=== PATIENT | female | born 1985 | race Two or more races ===

== ENCOUNTER 2017-03-13 20:00 | Emergency (ER) | payer MEDICAID, OTHER ==
[~2017-03-13] VITALS: Ht 167.6 cm; Wt 128.4 kg
--- NOTE | 2017-03-13 20:30 | NUR ---
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 PT IS ON THE MONITOR AND CONTINUOUS PULSE OX. PT IS AA&O X4. PT STATED THAT SHE HAS HAD N/V AND DIARRHEA X 8 DAYS.
[2017-03-13] MEDS ORDERED: ACETAMINOPHEN 325 MG TABLET PO STA (20:32)
[2017-03-13] MEDS ORDERED: KETOROLAC TROMETHAMINE INJ 30 MG/ML VIAL ONE (20:41)
[2017-03-13] MEDS ORDERED: ONDANSETRON HCL/PF 4 MG/2 ML VIAL ONE (20:41)
--- NOTE | 2017-03-13 20:49 | NUR ---
MEDICATED PT ORDERED
[2017-03-13 20:56] LABS: BASOPHILS # (AUTO) 0.3 /CMM (0.0-0.2); BASOPHILS % (AUTO) 1.5 % (0.0-2.0); EOSINOPHILS # (AUTO) 0.5 /CMM (0.0-0.7); EOSINOPHILS % (AUTO) 2.9 % (0.0-6.0); HEMATOCRIT 43 % (33-45); HEMOGLOBIN 14.5 g/dL (11.5-14.8); LYMPHOCYTES # (AUTO) 3.2 /CMM (0.8-4.8); LYMPHOCYTES % (AUTO) 19.1 % (20.0-44.0); MEAN CORPUSCULAR HEMOGLOBIN 28 PG (26.0-33.0); MEAN CORPUSCULAR HGB CONC 33 g/dl (31.0-36.0); MEAN CORPUSCULAR VOLUME 85 fL (82-100); MONOCYTES % (AUTO) 5.9 % (2.0-12.0); NEUTROPHILS # (AUTO) 11.7 /CMM (1.8-8.9); NEUTROPHILS % (AUTO) 70.6 % (43.0-81.0); PLATELET COUNT (AUTO) 441 /CMM (150-450); RDW COEFFICIENT OF VARIATION 13.3 (11.5-15.0); RED BLOOD CELL COUNT(AUTO) 5.11 MIL/uL (4.0-5.2); WHITE BLOOD COUNT (AUTO) 16.7 K/uL (4.3-11.0)
[2017-03-13] MEDS ORDERED: IV NS 0.9% 1,000 ML BAG IV ONE ×2 (21:00→21:30)
[2017-03-13] MEDS ORDERED: ONDANSETRON HCL/PF - ER 4 MG/2 ML VIAL IV ONE (21:00)
[2017-03-13] MEDS ORDERED: ONDANSETRON 4 MG TAB.RAPDIS SL ONE (21:00)
[2017-03-13] MEDS ORDERED: KETOROLAC TROMETHAMINE INJ 30 MG/ML VIAL IV ONE (21:00)
[2017-03-13 21:20] LABS: CALCIUM, SERUM 8.6 mg/dL (8.5-10.1); CREATININE 0.8 mg/dL (0.6-1.3); POTASSIUM 3.7 mmol/L (3.5-5.1)
[2017-03-13 21:27] LABS: ALBUMIN 3.1 g/dL (3.4-5.0); BILIRUBIN,TOTAL 0.1 mg/dL (0.2-1.0); TOTAL PROTEIN, SERUM 7.7 g/dL (6.4-8.2)
[2017-03-13] MEDS ORDERED: ALBUTEROL FS 2.5 MG/3 ML VIAL.NEB NEB ONE (21:30)
[2017-03-13] MEDS ORDERED: ALBUTEROL FS 2.5 MG/3 ML VIAL.NEB ONE (21:36)
--- NOTE | 2017-03-13 21:40 | NUR ---
PT IS REC'ING BREATHING TX.
[2017-03-13] MEDS ORDERED: AZITHROMYCIN 250 MG TABLET PO STA (21:57)
[2017-03-13] MEDS ORDERED: AZITHROMYCIN 250 MG TABLET ONE (22:05)
[2017-03-13] MEDS ORDERED: PROMETHAZINE HCL 25 MG/ML AMPUL IV STA (22:33)
[2017-03-13] MEDS ORDERED: PROMETHAZINE HCL 25 MG/ML AMPUL ONE (22:45)
--- NOTE | 2017-03-13 23:12 | NUR ---
IV removed. Catheter intact and site benign. Pressure and 4x4 applied to site. No bleeding noted.Patient discharged to home in stable condition. Written and verbal after care instructions given. Patient verbalizes understanding of instruction AND RX. PT AMBULATED OUT WITH A STEADY GAIT. PT IS TAKING AN UBER HOME. VSS
[2017-03-13 23:14] VITALS: BP 129/72
== END 2017-03-13 23:16 | disposition home or self-care (01) ==
LOC: ER 20:04
DX: J06.9 Acute upper respiratory infection, unspecified (principal); J45.909 Unspecified asthma, uncomplicated; F31.9 Bipolar disorder, unspecified; F41.0 Panic disorder [episodic paroxysmal anxiety]; I10 Essential (primary) hypertension; E11.9 Type 2 diabetes mellitus without complications; F17.200 Nicotine dependence, unspecified, uncomplicated; Z88.6 Allergy status to analgesic agent; Z90.49 Acquired absence of other specified parts of digestive tract
CPT/HCPCS: 36415; 71010-TC; 80053-TC; 82962-TC; 83690-TC; 85025-TC; A4606; J1885; J2405; J2550; J7030; Z7610

== ENCOUNTER 2017-03-18 08:29 | Emergency (ER) | payer OTHER ==
[~2017-03-18] VITALS: Ht 167.6 cm; Wt 128.4 kg
[2017-03-18] MEDS ORDERED: HYDROCODONE/APAP 10/325MG 1 EA TABLET ONE (09:00)
[2017-03-18] MEDS ORDERED: HYDROCODONE/APAP 10/325MG 1 EA TABLET PO ONE (09:00)
--- NOTE | 2017-03-18 09:01 | NUR ---
PT REC'D TO ER C/O NECK AND BACK PAIN 01/08 FELL 03/17/17 AT STORE facility. ER MD notified.AWAITING EVALUATION BY ER PROVIDER.
--- NOTE | 2017-03-18 09:03 | NUR ---
PT GIVEN NORCO 10 MG PO NOW PER MD ORDER VSS
--- NOTE | 2017-03-18 09:30 | NUR ---
PT SENT TO CT
--- NOTE | 2017-03-18 10:06 | NUR ---
PT BACK FROM CT PAIN WAITING EVALUATION BY ER PROVIDER.
[2017-03-18] MEDS ORDERED: KETOROLAC TROMETHAMINE INJ 30 MG/ML VIAL ONE (12:10)
--- NOTE | 2017-03-18 12:22 | NUR ---
Patient discharged to home in stable condition. Written and verbal after care instructions given. Patient verbalizes understanding of instruction.
[2017-03-18 12:23] VITALS: BP 122/81
[2017-03-18] MEDS ORDERED: KETOROLAC TROMETHAMINE INJ 60 MG/2 ML VIAL IM ONE (12:30)
== END 2017-03-18 12:24 | disposition home or self-care (01) ==
LOC: ER 08:36
DX: S16.1XXA Strain of muscle, fascia and tendon at neck level, initial encounter (principal); S80.01XA Contusion of right knee, initial encounter; E66.01 Morbid (severe) obesity due to excess calories; I10 Essential (primary) hypertension; J45.909 Unspecified asthma, uncomplicated; E11.9 Type 2 diabetes mellitus without complications; Z88.6 Allergy status to analgesic agent; F17.200 Nicotine dependence, unspecified, uncomplicated; F31.9 Bipolar disorder, unspecified; Z90.49 Acquired absence of other specified parts of digestive tract; W18.39XA Other fall on same level, initial encounter; Y93.01 Activity, walking, marching and hiking; Y92.89 Other specified places as the place of occurrence of the external cause; Y99.8 Other external cause status
CPT/HCPCS: 72125; 73564; 99284; A4606; J1885; Z7610

== ENCOUNTER 2017-04-15 07:44 | Emergency (ER) | payer MEDICAID, OTHER ==
[~2017-04-15] VITALS: Ht 170.2 cm; Wt 133.8 kg
[2017-04-15] MEDS ORDERED: OSELTAMIVIR PHOSPHATE 75 MG CAPSULE PO ONE (08:00)
[2017-04-15] MEDS ORDERED: ALBUTEROL FS 2.5 MG/3 ML VIAL.NEB NEB ONE (08:00)
[2017-04-15] MEDS ORDERED: IPRATROPIUM NEB FS 0.5 MG/2.5 ML AMPUL.NEB NEB ONE (08:00)
[2017-04-15] MEDS ORDERED: IBUPROFEN 400 MG TABLET PO ONE (08:00)
[2017-04-15] MEDS ORDERED: predniSONE 20 MG TABLET PO ONE (08:00)
[2017-04-15] MEDS ORDERED: IBUPROFEN 400 MG TABLET ONE (08:03)
[2017-04-15] MEDS ORDERED: predniSONE 20 MG TABLET ONE (08:04)
[2017-04-15] MEDS ORDERED: OSELTAMIVIR PHOSPHATE 75 MG CAPSULE ONE (08:04)
[2017-04-15] MEDS ORDERED: ALBUTEROL FS 2.5 MG/3 ML VIAL.NEB ONE (08:09)
[2017-04-15] MEDS ORDERED: IPRATROPIUM NEB FS 0.5 MG/2.5 ML AMPUL.NEB ONE (08:09)
[2017-04-15 08:50] VITALS: BP 124/80
== END 2017-04-15 08:56 | disposition home or self-care (01) ==
LOC: ER 07:45
DX: J06.9 Acute upper respiratory infection, unspecified (principal); J11.1 Influenza due to unidentified influenza virus with other respiratory manifestations; J45.901 Unspecified asthma with (acute) exacerbation; I10 Essential (primary) hypertension; E11.9 Type 2 diabetes mellitus without complications; F31.9 Bipolar disorder, unspecified; E66.01 Morbid (severe) obesity due to excess calories; E78.5 Hyperlipidemia, unspecified; F17.200 Nicotine dependence, unspecified, uncomplicated; Z90.49 Acquired absence of other specified parts of digestive tract; Z88.6 Allergy status to analgesic agent
CPT/HCPCS: 94640; 99284; A4606; J7512; Z7610

== ENCOUNTER 2017-04-18 16:51 | Emergency (ER) | payer MEDICAID ==
[~2017-04-18] VITALS: Ht 167.6 cm; Wt 132.9 kg
--- NOTE | 2017-04-18 17:36 | NUR ---
CALLED [facility] FOR PHENERGAN
[2017-04-18 17:38] LABS: BASOPHILS # (AUTO) 0.1 /CMM (0.0-0.2); BASOPHILS % (AUTO) 0.5 % (0.0-2.0); EOSINOPHILS # (AUTO) 0.1 /CMM (0.0-0.7); EOSINOPHILS % (AUTO) 0.9 % (0.0-6.0); HEMATOCRIT 43 % (33-45); HEMOGLOBIN 14.1 g/dL (11.5-14.8); LYMPHOCYTES % (AUTO) 19.5 % (20.0-44.0); MEAN CORPUSCULAR HEMOGLOBIN 28 PG (26.0-33.0); MEAN CORPUSCULAR HGB CONC 33 g/dl (31.0-36.0); MEAN CORPUSCULAR VOLUME 85 fL (82-100); MONOCYTES # (AUTO) 0.8 /CMM (0.1-1.30); MONOCYTES % (AUTO) 5.5 % (2.0-12.0); NEUTROPHILS # (AUTO) 11.2 /CMM (1.8-8.9); NEUTROPHILS % (AUTO) 73.6 % (43.0-81.0); PLATELET COUNT (AUTO) 396 /CMM (150-450); RDW COEFFICIENT OF VARIATION 15.4 (11.5-15.0); RED BLOOD CELL COUNT(AUTO) 5.08 MIL/uL (4.0-5.2); WHITE BLOOD COUNT (AUTO) 15.2 K/uL (4.3-11.0)
[2017-04-18 17:49] LABS: CALCIUM, SERUM 8.7 mg/dL (8.5-10.1); CREATININE 0.8 mg/dL (0.6-1.3); POTASSIUM 3.5 mmol/L (3.5-5.1)
[2017-04-18] MEDS: CODEINE/PROMETHAZINE HCL 5 ML UDC PO PRN (17:49)
--- NOTE | 2017-04-18 17:55 | NUR ---
RT PT REFUSED TX INFORMED DR GUERRERO. SP02 95% HR 111 RESP 20. BREATH SOUNDS CLEAR NO RESP DISTRESS NOTED ATT. PT STATES SHE GETS ANXIETY AND JITTERY AFTER TAKING THE TX AND THAT SHE ALREADY TOOK 2 TX PRIOR TO COMING TO THE EMERGENCY ROOM. SHE WILL CALL WHEN SHE NEEDS THE TX
--- NOTE | 2017-04-18 18:00 | NUR ---
BBRA FOR COUGH AND SHORTNESS OF BREATH, GIVEN BREATHING TREATMENT BY EMS WITH RELIEF. PATIENT'S VS STABLE AT THIS TIME
--- NOTE | 2017-04-18 18:13 | NUR ---
PER RT PATIENT REFUSED BREATHING TX
[2017-04-18] MEDS: ALBUTEROL FS 2.5 MG/3 ML VIAL.NEB NEB ONE (18:17)
[2017-04-18] MEDS: IPRATROPIUM NEB FS 0.5 MG/2.5 ML AMPUL.NEB NEB ONE (18:17)
[2017-04-18 19:30] VITALS: BP 132/91
--- NOTE | 2017-04-18 19:31 | NUR ---
Patient discharged to home in stable condition. Written and verbal after care instructions given. Patient verbalizes understanding of instruction.IV removed. Catheter intact and site benign. Pressure and 4x4 applied to site. No bleeding noted. PT ambulatory with a steady gait
== END 2017-04-18 19:31 | disposition home or self-care (01) ==
LOC: ER 16:54
DX: J45.901 Unspecified asthma with (acute) exacerbation (principal); I10 Essential (primary) hypertension; E11.9 Type 2 diabetes mellitus without complications; F31.9 Bipolar disorder, unspecified; F41.0 Panic disorder [episodic paroxysmal anxiety]; F17.210 Nicotine dependence, cigarettes, uncomplicated; Z90.49 Acquired absence of other specified parts of digestive tract; Z88.6 Allergy status to analgesic agent
CPT/HCPCS: 36415; 71010; 80048; 85025; 87804 ×2; 99285; A4606; Z7610; 87400

== ENCOUNTER 2017-06-29 06:45 | Emergency (ER) | payer MEDICAID, OTHER ==
[~2017-06-29] VITALS: Ht 167.6 cm; Wt 99.8 kg
[2017-06-29 06:53] VITALS: BP 125/78
[2017-06-29] MEDS ORDERED: ACETAMINOPHEN 325 MG TABLET ONE (07:02)
[2017-06-29] MEDS ORDERED: ACETAMINOPHEN 325 MG TABLET PO ONE (07:30)
== END 2017-06-29 07:06 | disposition home or self-care (01) ==
LOC: ER 06:50
DX: S93.402A Sprain of unspecified ligament of left ankle, initial encounter (principal); E11.9 Type 2 diabetes mellitus without complications; I10 Essential (primary) hypertension; J45.909 Unspecified asthma, uncomplicated; F17.200 Nicotine dependence, unspecified, uncomplicated; F41.0 Panic disorder [episodic paroxysmal anxiety]; F31.9 Bipolar disorder, unspecified; Z90.49 Acquired absence of other specified parts of digestive tract; Z88.6 Allergy status to analgesic agent; Z60.2 Problems related to living alone; X58.XXXA Exposure to other specified factors, initial encounter; Y93.89 Activity, other specified; Y92.89 Other specified places as the place of occurrence of the external cause; Y99.8 Other external cause status

== ENCOUNTER 2017-08-01 14:10 | Emergency (ER) | payer OTHER ==
[~2017-08-01] VITALS: Ht 170.2 cm; Wt 136.1 kg
--- NOTE | 2017-08-01 14:32 | NUR ---
PATIENT TO ED DT DIZZY, WEAK, DIARRHEA, THIRSTY AND URINARY URGENCY X YESTERDAY. PATIENT IS AWAKE AND ALERT, IN NO DISTRESS. SKIN IS WARM TO TOUCH AND NON DIAPHORETIC. PATIENT IS AFEBRILE. VSS. PT WITH HX OF DM
[2017-08-01 15:22] LABS: APPEARANCE,URINE Slightly Cloudy (CLEAR); BILIRUBIN,URINE Negative (NEGATIVE); BLOOD, URINE Negative Ery/uL (NEGATIVE); COLOR,URINE Yellow (YELLOW); KETONES,URINE Trace (NEGATIVE); LEUKOCYTE ESTERASE ,URINE Small (NEGATIVE); NITRITE, URINE Negative (NEGATIVE); PH,URINE 5.5 (5.0-8.0); PROTEIN,URINE Negative (NEGATIVE); UGLUCOSE Negative (NEGATIVE); UROBILINOGEN,URINE 0.2 EU/dL (0.2)
[2017-08-01 15:43] LABS: BASOPHILS # (AUTO) 0.3 /CMM (0.0-0.2); BASOPHILS % (AUTO) 2.1 % (0.0-2.0); EOSINOPHILS % (AUTO) 3.2 % (0.0-6.0); HEMATOCRIT 41 % (33-45); HEMOGLOBIN 14.1 g/dL (11.5-14.8); LYMPHOCYTES # (AUTO) 2.3 /CMM (0.8-4.8); LYMPHOCYTES % (AUTO) 17.9 % (20.0-44.0); MEAN CORPUSCULAR HGB CONC 35 g/dl (31.0-36.0); MEAN CORPUSCULAR VOLUME 86 fL (82-100); MONOCYTES # (AUTO) 0.7 /CMM (0.1-1.30); MONOCYTES % (AUTO) 5.7 % (2.0-12.0); NEUTROPHILS # (AUTO) 9.4 /CMM (1.8-8.9); NEUTROPHILS % (AUTO) 71.1 % (43.0-81.0); PLATELET COUNT (AUTO) 346 /CMM (150-450); RDW COEFFICIENT OF VARIATION 12.7 (11.5-15.0); RED BLOOD CELL COUNT(AUTO) 4.76 MIL/uL (4.0-5.2); WHITE BLOOD COUNT (AUTO) 13.1 K/uL (4.3-11.0)
[2017-08-01 16:02] LABS: CALCIUM, SERUM 8.5 mg/dL (8.5-10.1); CREATININE 0.7 mg/dL (0.6-1.3); POTASSIUM 4.3 mmol/L (3.5-5.1)
[2017-08-01 16:03] LABS: BACTERIA,URINE 1+ /HPF (None Seen); RBC,URINE 0-2 /HPF (0-2); SQUAMOUS EPITHELIAL CELL,UR Many /HPF (None Seen)
[2017-08-01 16:07] LABS: ALBUMIN 2.8 g/dL (3.4-5.0); BILIRUBIN,DIRECT 0.1 mg/dL (0.0-0.2); BILIRUBIN,TOTAL 0.1 mg/dL (0.2-1.0); TOTAL PROTEIN, SERUM 6.9 g/dL (6.4-8.2)
[2017-08-01 16:30] VITALS: BP 140/80
--- NOTE | 2017-08-01 16:53 | NUR ---
PATIENT LEFT THE FACILITY WITHOIUTT DISCHARGE PAPER. REFUSED TO SIGNED AMA--INSISTED TO LEAVE. AWARE. IV ACCESS REMOVED.
--- NOTE | 2017-08-01 17:10 | NUR ---
PATIENT STILL IN ED. AWAITING FOR MD PRESCRIPTION
--- NOTE | 2017-08-01 17:26 | NUR ---
Patient discharged to home in stable condition. Written and verbal after care instructions given. Patient verbalizes understanding of instruction.
== END 2017-08-01 17:00 | disposition home or self-care (01) ==
LOC: ER 14:12
DX: N39.0 Urinary tract infection, site not specified (principal); I10 Essential (primary) hypertension; E11.9 Type 2 diabetes mellitus without complications; F17.210 Nicotine dependence, cigarettes, uncomplicated; F31.9 Bipolar disorder, unspecified; J45.909 Unspecified asthma, uncomplicated; Z90.49 Acquired absence of other specified parts of digestive tract; Z88.5 Allergy status to narcotic agent
CPT/HCPCS: 36415; 80048-TC; 80076-TC; 81000-TC; 82962-TC; 84703-TC; 85025-TC; A4606; Z7610

== ENCOUNTER 2017-08-09 00:59 | Emergency (ER) | payer OTHER ==
[~2017-08-09] VITALS: Ht 165.1 cm; Wt 136.1 kg
[2017-08-09 00:59] VITALS: BP 128/71
[2017-08-09] MEDS ORDERED: ONDANSETRON 4 MG TAB.RAPDIS ONE (02:15)
[2017-08-09] MEDS ORDERED: ONDANSETRON 4 MG TAB.RAPDIS SL ONE (02:30)
== END 2017-08-09 03:56 | disposition home or self-care (01) ==
LOC: ER 00:59
DX: S93.491A Sprain of other ligament of right ankle, initial encounter (principal); I10 Essential (primary) hypertension; J45.909 Unspecified asthma, uncomplicated; E11.9 Type 2 diabetes mellitus without complications; F31.9 Bipolar disorder, unspecified; F17.200 Nicotine dependence, unspecified, uncomplicated; Z90.49 Acquired absence of other specified parts of digestive tract; Z88.6 Allergy status to analgesic agent; Z60.2 Problems related to living alone; W22.8XXA Striking against or struck by other objects, initial encounter; Y93.89 Activity, other specified; Y92.89 Other specified places as the place of occurrence of the external cause; Y99.8 Other external cause status
CPT/HCPCS: 73610-TC; A4606; Q0162; Z7610

== ENCOUNTER 2017-09-08 15:25 | Emergency (ER) | payer OTHER ==
[~2017-09-08] VITALS: Ht 170.2 cm; Wt 136.1 kg
--- NOTE | 2017-09-08 15:30 | NUR ---
PRESENTS TO ER STATING SHE WENT TO [email or web address] FOR VOLUNTARY ADMISSION BUT WAS TOLD TO COME HERE TO BE MEDICALLY CLEARED INSTEAD.REQUESTING FOR ATIVAN C/O ANXIETY. A/OX 4. BREATHING EVEN AND UNLABORED. NO SOB, NAD, VITALS STABLE. SAFETY AND COMFORT MEASURSES IN PLACE. AWAITING MD ORDERS.
[2017-09-08 16:20] LABS: BASOPHILS # (AUTO) 0.2 /CMM (0.0-0.2); BASOPHILS % (AUTO) 1.5 % (0.0-2.0); EOSINOPHILS % (AUTO) 1.8 % (0.0-6.0); HEMATOCRIT 41 % (33-45); HEMOGLOBIN 14.6 g/dL (11.5-14.8); LYMPHOCYTES # (AUTO) 1.9 /CMM (0.8-4.8); LYMPHOCYTES % (AUTO) 11.6 % (20.0-44.0); MEAN CORPUSCULAR HGB CONC 36 g/dl (31.0-36.0); MEAN CORPUSCULAR VOLUME 85 fL (82-100); MONOCYTES # (AUTO) 0.9 /CMM (0.1-1.30); MONOCYTES % (AUTO) 5.4 % (2.0-12.0); NEUTROPHILS % (AUTO) 79.7 % (43.0-81.0); PLATELET COUNT (AUTO) 330 /CMM (150-450); RDW COEFFICIENT OF VARIATION 13.8 (11.5-15.0); RED BLOOD CELL COUNT(AUTO) 4.77 MIL/uL (4.0-5.2); WHITE BLOOD COUNT (AUTO) 16.3 K/uL (4.3-11.0)
[2017-09-08 16:29] LABS: CALCIUM, SERUM 8.7 mg/dL (8.5-10.1); CARBON DIOXIDE 26 mmol/L (21-32); CHLORIDE 100 mmol/L (98-107); CREATININE 0.9 mg/dL (0.6-1.3); GLUCOSE 179 mg/dL (74-106); POTASSIUM 3.9 mmol/L (3.5-5.1); SODIUM SERUM 132 mmol/L (136-145); UREA NITROGEN, BLOOD 10 mg/dL (7-18)
[2017-09-08] MEDS ORDERED: LORAZEPAM 1 MG TABLET ONE (16:29)
[2017-09-08] MEDS ORDERED: LORAZEPAM 1 MG TABLET PO ONE (16:30)
--- NOTE | 2017-09-08 16:32 | NUR ---
URINE OBTAINED AND SENT TO LAB.
[2017-09-08 16:34] LABS: ALANINE AMINOTRANSFERASE 20 U/L (12-78); ALCOHOL, BLOOD < 3 mg/dL (0-0); ALKALINE PHOSPHATASE 92 U/L (46-116); ASPARTATE AMINOTRANSFERASE 9 U/L (15-37); BILIRUBIN,TOTAL 0.3 mg/dL (0.2-1.0); SALICYLATE 2.9 mg/dL (2.8-20.0); TOTAL PROTEIN, SERUM 7.4 g/dL (6.4-8.2)
[2017-09-08 16:35] LABS: ACETAMINOPHEN 0 ug/ml (10-30)
--- NOTE | 2017-09-08 16:39 | NUR ---
PATIENT MEDICATED PER MD ORDERS.
[2017-09-08 16:47] LABS: APPEARANCE,URINE Clear (CLEAR); BILIRUBIN,URINE Negative (NEGATIVE); BLOOD, URINE Negative Ery/uL (NEGATIVE); COLOR,URINE Yellow (YELLOW); KETONES,URINE Negative (NEGATIVE); LEUKOCYTE ESTERASE ,URINE Negative (NEGATIVE); NITRITE, URINE Negative (NEGATIVE); PROTEIN,URINE Negative (NEGATIVE); UGLUCOSE Negative (NEGATIVE); UROBILINOGEN,URINE 0.2 EU/dL (0.2)
--- NOTE | 2017-09-08 17:53 | NUR ---
FAXED PT PACKET TO [facility] AT [facility],
[2017-09-08 17:59] LABS: BAND % (MANUAL) 1 % (0.0-5.0); BASOPHILS % (MANUAL) 0 % (0.0-2.0); EOSINOPHILS % (MANUAL) 0 % (0-4); LYMPHOCYTES % (MANUAL) 10 % (16-48); MONOCYTES % (MANUAL) 5 % (0-11.0); NEUTROPHILS % (MANUAL) 84 (42-76)
--- NOTE | 2017-09-08 18:21 | NUR ---
REPORT GIVEN TO ROSE TAY FOR [facility] UPON TRANSFER.
--- NOTE | 2017-09-08 18:28 | NUR ---
CALLED [facility] FOR TRANSPORT TO [facility] [phone], TRIP #[phone]
--- NOTE | 2017-09-08 19:24 | NUR ---
REPORT GIVEN TO WALDEMAR CAZARES FROM [facility]. PT BEING TRANSPORTED TO [facility]. Patient discharged to home in stable condition. Written and verbal after care instructions given. Patient verbalizes understanding of instruction. VSS. NAD NOTED.
[2017-09-08 19:26] VITALS: BP 128/94
== END 2017-09-08 19:29 ==
LOC: ER 15:29
DX: R45.851 Suicidal ideations (principal); D72.829 Elevated white blood cell count, unspecified; E11.65 Type 2 diabetes mellitus with hyperglycemia; L03.314 Cellulitis of groin; I10 Essential (primary) hypertension; E78.00 Pure hypercholesterolemia, unspecified; F31.9 Bipolar disorder, unspecified; F41.9 Anxiety disorder, unspecified; F17.210 Nicotine dependence, cigarettes, uncomplicated; J45.909 Unspecified asthma, uncomplicated; Z90.49 Acquired absence of other specified parts of digestive tract; Z88.6 Allergy status to analgesic agent
CPT/HCPCS: 36415; 80048; 80076; 80305; 80329; 81001; 84703; 85025; 99285; 99406; A4606; G0480 ×2; Z7610; 81000-TC

== ENCOUNTER 2017-09-08 22:50 | Emergency (ER) | payer OTHER ==
[~2017-09-08] VITALS: Ht 162.6 cm; Wt 122.5 kg
--- NOTE | 2017-09-08 23:00 | NUR ---
Pt ARRIVED TO ER STATING THAT SHE WAS AT [place] FOR OVER 3HOURS WAS NOT BEING SEEN. Pt STATED THAT SHE TOOK KLONIPIN PILLS TO HELP HER SLEEP. WAITING FOR PSYCH EVAL. Pt WAITING IN BED.
[2017-09-08 23:41] LABS: BASOPHILS % (AUTO) 0.3 % (0.0-2.0); EOSINOPHILS % (AUTO) 2.3 % (0.0-6.0); HEMATOCRIT 42 % (33-45); HEMOGLOBIN 14.3 g/dL (11.5-14.8); LYMPHOCYTES # (AUTO) 2.4 /CMM (0.8-4.8); LYMPHOCYTES % (AUTO) 14.6 % (20.0-44.0); MEAN CORPUSCULAR HGB CONC 34 g/dl (31.0-36.0); MEAN CORPUSCULAR VOLUME 87 fL (82-100); MONOCYTES # (AUTO) 0.6 /CMM (0.1-1.30); MONOCYTES % (AUTO) 3.9 % (2.0-12.0); NEUTROPHILS # (AUTO) 12.7 /CMM (1.8-8.9); NEUTROPHILS % (AUTO) 78.9 % (43.0-81.0); PLATELET COUNT (AUTO) 341 /CMM (150-450); RDW COEFFICIENT OF VARIATION 14.2 (11.5-15.0); RED BLOOD CELL COUNT(AUTO) 4.83 MIL/uL (4.0-5.2); WHITE BLOOD COUNT (AUTO) 16.1 K/uL (4.3-11.0)
[2017-09-08 23:52] LABS: CARBON DIOXIDE 29 mmol/L (21-32); CHLORIDE 100 mmol/L (98-107); CREATININE 0.8 mg/dL (0.6-1.3); GLUCOSE 203 mg/dL (74-106); POTASSIUM 3.7 mmol/L (3.5-5.1); SODIUM SERUM 134 mmol/L (136-145); UREA NITROGEN, BLOOD 13 mg/dL (7-18)
[2017-09-08 23:58] LABS: ALANINE AMINOTRANSFERASE 19 U/L (12-78); ALBUMIN 3.2 g/dL (3.4-5.0); ALCOHOL, BLOOD < 3 mg/dL (0-0); ALKALINE PHOSPHATASE 103 U/L (46-116); ASPARTATE AMINOTRANSFERASE 6 U/L (15-37); BILIRUBIN,TOTAL 0.2 mg/dL (0.2-1.0); SALICYLATE 2.9 mg/dL (2.8-20.0); TOTAL PROTEIN, SERUM 7.5 g/dL (6.4-8.2)
[2017-09-08 23:59] LABS: ACETAMINOPHEN 0 ug/ml (10-30)
--- NOTE | 2017-09-09 00:29 | NUR ---
NEW URINE SAMPLE COLLECTED
[2017-09-09 00:48] LABS: APPEARANCE,URINE CLEAR (CLEAR); BILIRUBIN,URINE NEGATIVE (NEGATIVE); BLOOD, URINE NEGATIVE Ery/uL (NEGATIVE); COLOR,URINE YELLOW (YELLOW); KETONES,URINE NEGATIVE (NEGATIVE); LEUKOCYTE ESTERASE ,URINE 1+ (NEGATIVE); NITRITE, URINE NEGATIVE (NEGATIVE); PROTEIN,URINE NEGATIVE (NEGATIVE); UGLUCOSE NEGATIVE (NEGATIVE); UROBILINOGEN,URINE 0.2 EU/dL (0.2)
[2017-09-09 00:50] LABS: RBC,URINE 0-2 /HPF (0-2)
[2017-09-09 00:51] LABS: BACTERIA,URINE Few /HPF (None Seen); SQUAMOUS EPITHELIAL CELL,UR Moderate /HPF (None Seen)
[2017-09-09] MEDS ORDERED: SULFAMETH/TRIMETH 800/160 MG 1 UDTAB TABLET PO ONE ×2 (01:30→01:46)
--- NOTE | 2017-09-09 02:19 | NUR ---
Pt OUT OF BED. YELLING AT STAFF IN NURSING STATION. Pt IS REQUESTING TO LEAVE AMA. Pt SIGNED PAPERS. Pt IN WAITING ROOM TO GET HER MEDICAL FILE.
--- NOTE | 2017-09-09 04:00 | NUR ---
Note anna marie in [facility] - 09/09/17 at 0437 by ZAHRAA Pt IN BED 15 TALKING WITH THE POLICE OFFICERS.
--- NOTE | 2017-09-09 04:02 | NUR ---
Pt LEFT AMA, SIGNED AMA PAPERS. AND WAS ESCORTED BY POLICE OFFICERS OUT OF THE FACILITY. Pt THEN STATED TO THE POLICE THAT SHE IS SUICIDAL, AND CHANGED HER MIND AND WANTED TO COME BACK. POLICE ESCORTED Pt BACK INSIDE TO THE ER. Pt IS NOW WAITING IN ER BED 15.
--- NOTE | 2017-09-09 04:15 | NUR ---
Pt IN ER BED 15. POLICE AT BEDSIDE TALKING WITH THE Pt
--- NOTE | 2017-09-09 05:43 | NUR ---
Pt ASLEEP IN BED. NO S/S OF ACUTE DISTRESS OR SOB NOTED. WILL CONTINUE TO MONITOR Pt FOR SAFETY.
--- NOTE | 2017-09-09 06:57 | NUR ---
Pt STILL ASLEEP IN BED. NO S/S OF ACUTE DISTRESS OR SOB NOTED. RESPIRATIONS EVEN AND UNLABORED. WILL CONTINUE TO MONITOR Pt FOR SAFETY.
--- NOTE | 2017-09-09 07:48 | NUR ---
CALLED [phone]. GAVE REPORT TO MAGGI NAM.
[2017-09-09 07:49] VITALS: BP 129/75
--- NOTE | 2017-09-09 08:08 | NUR ---
REPORT GIVEN TO [facility] FOR TRANSPORT TO [facility]
== END 2017-09-09 08:10 ==
LOC: ER 22:53
DX: R45.851 Suicidal ideations (principal); F31.9 Bipolar disorder, unspecified; J45.909 Unspecified asthma, uncomplicated; E11.9 Type 2 diabetes mellitus without complications; I10 Essential (primary) hypertension; F41.0 Panic disorder [episodic paroxysmal anxiety]; F17.200 Nicotine dependence, unspecified, uncomplicated; Z88.6 Allergy status to analgesic agent; Z90.49 Acquired absence of other specified parts of digestive tract; Z60.2 Problems related to living alone
CPT/HCPCS: 36415; 80048-TC; 80076-TC; 80305; 81000-TC; 84703-TC; 85025-TC; 87086-TC; A4606; G0480; Z7610

== ENCOUNTER 2017-10-29 20:33 | Emergency (ER) | payer OTHER ==
[~2017-10-29] VITALS: Ht 167.6 cm; Wt 129.3 kg
--- NOTE | 2017-10-29 20:33 | NUR ---
BIBSELF C/O "HAND AND FEET NUMBNESS/PAIN AND POSSIBLE HIGH BLOOD SUGAR" BS STABLE ON ARRIVAL. PT IS TACHYCARDIC WITH HYPERTENSION BUT OTHERWISE VITALS ARE STABLE. A/OX4 ABLE TO MAKE NEEDS KNOWN. LUNG SOUNDS CLEAR TO AUSCULTATION
[2017-10-29] MEDS ORDERED: KETOROLAC TROMETHAMINE INJ 30 MG/ML VIAL ONE (22:19)
[2017-10-29] MEDS ORDERED: IV NS 0.9% 1,000 ML BAG IV ONE (22:30)
[2017-10-29] MEDS ORDERED: KETOROLAC TROMETHAMINE INJ 30 MG/ML VIAL IV ONE (22:30)
[2017-10-29 22:37] LABS: BASOPHILS # (AUTO) 0.2 /CMM (0.0-0.2); BASOPHILS % (AUTO) 1.9 % (0.0-2.0); EOSINOPHILS % (AUTO) 2.8 % (0.0-6.0); HEMATOCRIT 42 % (33-45); HEMOGLOBIN 14.1 g/dL (11.5-14.8); LYMPHOCYTES # (AUTO) 2.6 /CMM (0.8-4.8); MEAN CORPUSCULAR HEMOGLOBIN 30 PG (26.0-33.0); MEAN CORPUSCULAR HGB CONC 34 g/dl (31.0-36.0); MEAN CORPUSCULAR VOLUME 88 fL (82-100); MONOCYTES # (AUTO) 0.8 /CMM (0.1-1.30); MONOCYTES % (AUTO) 6.5 % (2.0-12.0); NEUTROPHILS # (AUTO) 7.8 /CMM (1.8-8.9); NEUTROPHILS % (AUTO) 66.8 % (43.0-81.0); PLATELET COUNT (AUTO) 358 /CMM (150-450); RDW COEFFICIENT OF VARIATION 13.3 (11.5-15.0); RED BLOOD CELL COUNT(AUTO) 4.75 MIL/uL (4.0-5.2); WHITE BLOOD COUNT (AUTO) 11.7 K/uL (4.3-11.0)
[2017-10-29 22:50] LABS: CALCIUM, SERUM 9.1 mg/dL (8.5-10.1); CREATININE 0.7 mg/dL (0.6-1.3); POTASSIUM 3.9 mmol/L (3.5-5.1)
[2017-10-29 23:07] VITALS: BP 137/87
--- NOTE | 2017-10-29 23:08 | NUR ---
Patient discharged to home in stable condition. Written and verbal after care instructions given. Patient verbalizes understanding of instruction.IV removed. Catheter intact and site benign. Pressure and 4x4 applied to site. No bleeding noted.
== END 2017-10-29 23:09 | disposition home or self-care (01) ==
LOC: ER 20:34
DX: E11.40 Type 2 diabetes mellitus with diabetic neuropathy, unspecified (principal); F31.9 Bipolar disorder, unspecified; F41.0 Panic disorder [episodic paroxysmal anxiety]; I10 Essential (primary) hypertension; J45.909 Unspecified asthma, uncomplicated; F17.200 Nicotine dependence, unspecified, uncomplicated; Z88.6 Allergy status to analgesic agent; Z60.2 Problems related to living alone; Z90.49 Acquired absence of other specified parts of digestive tract
CPT/HCPCS: 36415; 80048; 82962; 85025; 96361; 96374; 99284; A4606; J1885; J7030; Z7610

== ENCOUNTER 2018-01-23 09:13 | Emergency (ER) | payer MEDICAID, OTHER ==
[~2018-01-23] VITALS: Ht 170.2 cm; Wt 139.3 kg
--- NOTE | 2018-01-23 09:21 | NUR ---
PT AMBULATORY TO ER BED 10 C/O DIZZINESS AND GENERALIZED WEAKNESS SINCE THIS AM. WENT TO URGENT CARE, AND ACUCHECK WAS DOONE W A BLOOD SUGAR OF 323 SO THEY ADVISED HER TO GO TO ER. GOWNED AND PLACED ON MONITOR. VSS. AWAITING MD AVILA.
--- NOTE | 2018-01-23 09:28 | NUR ---
DR OCHOA AT BEDSIDE FOR EVAL.
[2018-01-23] MEDS ORDERED: IV NS 0.9% 1,000 ML BAG IV ONE (09:30)
[2018-01-23 09:47] LABS: BASOPHILS # (AUTO) 0.1 /CMM (0.0-0.2); BASOPHILS % (AUTO) 1.2 % (0.0-2.0); EOSINOPHILS % (AUTO) 2.7 % (0.0-6.0); HEMATOCRIT 43 % (33-45); HEMOGLOBIN 14.1 g/dL (11.5-14.8); LYMPHOCYTES # (AUTO) 1.3 /CMM (0.8-4.8); LYMPHOCYTES % (AUTO) 14.8 % (20.0-44.0); MEAN CORPUSCULAR HGB CONC 33 g/dl (31.0-36.0); MEAN CORPUSCULAR VOLUME 88 fL (82-100); MONOCYTES # (AUTO) 0.5 /CMM (0.1-1.30); MONOCYTES % (AUTO) 5.4 % (2.0-12.0); NEUTROPHILS % (AUTO) 75.9 % (43.0-81.0); PLATELET COUNT (AUTO) 312 /CMM (150-450); RDW COEFFICIENT OF VARIATION 13.6 (11.5-15.0); RED BLOOD CELL COUNT(AUTO) 4.92 MIL/uL (4.0-5.2); WHITE BLOOD COUNT (AUTO) 9.1 K/uL (4.3-11.0)
[2018-01-23 09:53] LABS: CALCIUM, SERUM 8.1 mg/dL (8.5-10.1); CARBON DIOXIDE 32 mmol/L (21-32); CHLORIDE 100 mmol/L (98-107); CREATININE 0.9 mg/dL (0.6-1.3); GLUCOSE 237 mg/dL (74-106); POTASSIUM 4.1 mmol/L (3.5-5.1); SODIUM SERUM 131 mmol/L (136-145); UREA NITROGEN, BLOOD 12 mg/dL (7-18)
[2018-01-23 10:03] LABS: INR 0.91 (0.85-1.15)
[2018-01-23 10:04] LABS: TROPONIN I < 0.017 ng/mL (0.00-0.056)
--- NOTE | 2018-01-23 10:10 | NUR ---
NEW IV STARTED ON RIGHT HAND, 20G. BLOOD DRAWN AND SENT TO LAB.
[2018-01-23 11:17] VITALS: BP 145/87
[2018-01-23] MEDS ORDERED: KETOROLAC TROMETHAMINE INJ 30 MG/ML VIAL IV ONE (11:30)
== END 2018-01-23 11:18 | disposition home or self-care (01) ==
LOC: ER 09:15
DX: E11.40 Type 2 diabetes mellitus with diabetic neuropathy, unspecified (principal); E11.65 Type 2 diabetes mellitus with hyperglycemia; F31.9 Bipolar disorder, unspecified; F17.200 Nicotine dependence, unspecified, uncomplicated; R94.31 Abnormal electrocardiogram [ECG] [EKG]; Z60.2 Problems related to living alone; Z88.6 Allergy status to analgesic agent
CPT/HCPCS: 36415; 80048; 84484; 84702; 85025; 85730; 93005; 96360; 99285; A4606; J7030; Z7610

== ENCOUNTER 2018-02-09 11:21 | Emergency (ER) | payer OTHER ==
[~2018-02-09] VITALS: Ht 167.6 cm; Wt 138.3 kg
[2018-02-09 11:21] VITALS: BP 118/73
--- NOTE | 2018-02-09 11:21 | NUR ---
PT AMBULATORY TO ER BED 05. HERE FOR GENERALIZED BODY ACHES, WEAKNESS FOR 2 WEEKS, N/V/D THAT STARTED 3 DAYS AGO. ALSO C/O UNSTABLE BLOOD SUGAR AFTER PMD CHANGE HER MEDICATION. VSS. AWAITING MD AVILA.
--- NOTE | 2018-02-09 12:50 | NUR ---
BRYANT SUTHERLAND AT BEDSIDE FOR EVAL.
[2018-02-09] MEDS ORDERED: ACETAMINOPHEN ES 500 MG TABLET PO ONE (13:30)
[2018-02-09] MEDS ORDERED: IPRATROPIUM NEB FS 0.5 MG/2.5 ML AMPUL.NEB NEB ONE (13:30)
[2018-02-09] MEDS ORDERED: IV NS 0.9% 1,000 ML BAG IV ONE (13:30)
[2018-02-09] MEDS ORDERED: ONDANSETRON HCL/PF 4 MG/2 ML VIAL IVP ONE (13:30)
[2018-02-09] MEDS ORDERED: ALBUTEROL FS 2.5 MG/3 ML VIAL.NEB NEB ONE (13:30)
[2018-02-09 13:35] LABS: BASOPHILS # (AUTO) 0.1 /CMM (0.0-0.2); BASOPHILS % (AUTO) 1.1 % (0.0-2.0); EOSINOPHILS % (AUTO) 2.3 % (0.0-6.0); HEMATOCRIT 42 % (33-45); HEMOGLOBIN 14.1 g/dL (11.5-14.8); LYMPHOCYTES # (AUTO) 1.6 /CMM (0.8-4.8); LYMPHOCYTES % (AUTO) 13.8 % (20.0-44.0); MEAN CORPUSCULAR HGB CONC 34 g/dl (31.0-36.0); MEAN CORPUSCULAR VOLUME 87 fL (82-100); MONOCYTES # (AUTO) 0.8 /CMM (0.1-1.30); MONOCYTES % (AUTO) 6.5 % (2.0-12.0); NEUTROPHILS % (AUTO) 76.3 % (43.0-81.0); PLATELET COUNT (AUTO) 339 /CMM (150-450); RDW COEFFICIENT OF VARIATION 13.6 (11.5-15.0); WHITE BLOOD COUNT (AUTO) 11.8 K/uL (4.3-11.0)
[2018-02-09 13:43] LABS: CALCIUM, SERUM 8.7 mg/dL (8.5-10.1); CREATININE 0.8 mg/dL (0.6-1.3); POTASSIUM 4.3 mmol/L (3.5-5.1)
[2018-02-09] MEDS ORDERED: ONDANSETRON HCL/PF 4 MG/2 ML VIAL ONE (14:07)
[2018-02-09] MEDS ORDERED: ACETAMINOPHEN ES 500 MG TABLET ONE (14:08)
[2018-02-09] MEDS ORDERED: ALBUTEROL FS 2.5 MG/3 ML VIAL.NEB ONE (14:14)
[2018-02-09] MEDS ORDERED: IPRATROPIUM NEB FS 0.5 MG/2.5 ML AMPUL.NEB ONE (14:14)
[2018-02-09] MEDS ORDERED: HYDROCODONE/APAP 5/325MG 1 EACH TABLET ONE (14:25)
[2018-02-09] MEDS ORDERED: HYDROCODONE/APAP 5/325MG 1 EACH TABLET PO ONE (14:30)
--- NOTE | 2018-02-09 15:27 | NUR ---
DX - INFLUENZA. ACI GIVEN. PT DISCHARGED HOME TO FOLLOW UP WITH PMD.
== END 2018-02-09 15:20 | disposition home or self-care (01) ==
LOC: ER 11:25
DX: E11.65 Type 2 diabetes mellitus with hyperglycemia (principal); B34.9 Viral infection, unspecified; F31.9 Bipolar disorder, unspecified; R11.2 Nausea with vomiting, unspecified; J45.909 Unspecified asthma, uncomplicated; F17.200 Nicotine dependence, unspecified, uncomplicated; Z60.2 Problems related to living alone
CPT/HCPCS: 36415; 80048; 82962 ×2; 85025; 94640; 96361; 96374; 99284; A4606; J2405; J7030; Z7610

== ENCOUNTER → 2018-04-17 | Emergency (ER) | payer OTHER ==
[~2018-04-17] VITALS: Ht 167.6 cm; Wt 137.4 kg
[~2018-04-17] MED LIST: IV NS 0.9% 1,000 ML BAG IV ONE
--- NOTE | 2018-04-17 15:34 | NUR ---
PT BROUGHT IN BY AMBULANCE FOR GENERALIZED WEAKNESS TEST BLOOD SUGAR WAS 372 TOOK INSULIN UNKNOWN AMOUNT PT ALERT WITH ORIENTATION X 3 PT ABLE TO WALK TALK UNDRESS SELF BLOOD SUGAR AT BEDSIDE 287
[2018-04-17 16:16] LABS: BASOPHILS # (AUTO) 0.1 /CMM (0.0-0.2); BASOPHILS % (AUTO) 1.1 % (0.0-2.0); EOSINOPHILS % (AUTO) 2.6 % (0.0-6.0); HEMATOCRIT 40 % (33-45); HEMOGLOBIN 13.8 g/dL (11.5-14.8); LYMPHOCYTES # (AUTO) 2.2 /CMM (0.8-4.8); LYMPHOCYTES % (AUTO) 17.6 % (20.0-44.0); MEAN CORPUSCULAR HGB CONC 34 g/dl (31.0-36.0); MEAN CORPUSCULAR VOLUME 91 fL (82-100); MONOCYTES # (AUTO) 0.8 /CMM (0.1-1.30); MONOCYTES % (AUTO) 6.7 % (2.0-12.0); NEUTROPHILS # (AUTO) 8.9 /CMM (1.8-8.9); PLATELET COUNT (AUTO) 293 /CMM (150-450); RED BLOOD CELL COUNT(AUTO) 4.43 MIL/uL (4.0-5.2); WHITE BLOOD COUNT (AUTO) 12.4 K/uL (4.3-11.0)
[2018-04-17 16:32] LABS: CARBON DIOXIDE 30 mmol/L (21-32); CHLORIDE 98 mmol/L (98-107); CREATININE 0.8 mg/dL (0.6-1.3); GLUCOSE 292 mg/dL (74-106); SODIUM SERUM 135 mmol/L (136-145); UREA NITROGEN, BLOOD 10 mg/dL (7-18)
[2018-04-17 16:38] LABS: ALANINE AMINOTRANSFERASE 20 U/L (12-78); ALBUMIN 2.6 g/dL (3.4-5.0); ALKALINE PHOSPHATASE 125 U/L (46-116); BILIRUBIN,TOTAL 0.1 mg/dL (0.2-1.0); TOTAL PROTEIN, SERUM 6.6 g/dL (6.4-8.2)
[2018-04-17 17:19] LABS: ASPARTATE AMINOTRANSFERASE 14 U/L (15-37)
--- NOTE | 2018-04-17 17:27 | NUR ---
PT BACK FROM CT SCAN WAITNG FOR RADIOLOGIST REPORT FLUIDS COMPLETED
[2018-04-17 18:17] VITALS: BP 140/74
--- NOTE | 2018-04-17 18:17 | NUR ---
PT DISCHARGED TO HOME WALKING WITH STEADY GAIT PIV REMOVED WITH TIP INTACT
--- NOTE | 2018-04-18 20:23 | NUR ---
work note given for yesterday's visit
== END | disposition home or self-care (01) ==
LOC: ER 15:10
DX: R53.83 Other fatigue (principal); R42 Dizziness and giddiness; E11.65 Type 2 diabetes mellitus with hyperglycemia; E88.09 Other disorders of plasma-protein metabolism, not elsewhere classified; G62.9 Polyneuropathy, unspecified; F31.9 Bipolar disorder, unspecified; J45.909 Unspecified asthma, uncomplicated; F17.200 Nicotine dependence, unspecified, uncomplicated; R00.0 Tachycardia, unspecified; R51 Headache; Z88.6 Allergy status to analgesic agent; Z60.2 Problems related to living alone
CPT/HCPCS: 70450; 71045; 80048; 80076; 82962; 84484; 84702; 85025; 85730; 93005; 99284; A4606; J7030; Z7610; 36415

== ENCOUNTER 2018-05-19 05:20 | Emergency (ER) | payer OTHER ==
[~2018-05-19] VITALS: Ht 170.2 cm; Wt 132.7 kg
[2018-05-19 05:27] VITALS: BP 150/95
[2018-05-19] MEDS ORDERED: KETOROLAC TROMETHAMINE INJ 60 MG/2 ML VIAL IM ONE (06:30)
[2018-05-19] MEDS ORDERED: KETOROLAC TROMETHAMINE INJ 30 MG/ML VIAL ONE (06:34)
== END 2018-05-19 06:49 | disposition home or self-care (01) ==
LOC: ER 05:21
DX: J11.1 Influenza due to unidentified influenza virus with other respiratory manifestations (principal); G89.29 Other chronic pain; M54.9 Dorsalgia, unspecified; F17.200 Nicotine dependence, unspecified, uncomplicated; J45.909 Unspecified asthma, uncomplicated; E11.40 Type 2 diabetes mellitus with diabetic neuropathy, unspecified; F31.9 Bipolar disorder, unspecified; Z60.2 Problems related to living alone; Z88.6 Allergy status to analgesic agent
CPT/HCPCS: 82962-TC; J1885

== ENCOUNTER 2018-08-08 07:06 | Emergency (ER) | payer MEDICAID, OTHER ==
[~2018-08-08] VITALS: Ht 165.1 cm; Wt 124.3 kg
--- NOTE | 2018-08-08 07:15 | NUR ---
AAOX3, came to ER c/o left upper back pain radiates to left arm x 2 days, denies chest pain or SOB. Skin is warm and dry. Awaiting md for eval.
--- NOTE | 2018-08-08 07:22 | NUR ---
Dr Stephens at for eval.
[2018-08-08] MEDS ORDERED: KETOROLAC TROMETHAMINE INJ 30 MG/ML VIAL IM ONE (07:30)
[2018-08-08] MEDS ORDERED: KETOROLAC TROMETHAMINE INJ 60 MG/2 ML VIAL IM ONE (07:43)
--- NOTE | 2018-08-08 07:44 | NUR ---
radiology at bedside for chest xray.
--- NOTE | 2018-08-08 08:10 | NUR ---
Patient discharged to home in stable condition. Written and verbal after care instructions given. Patient verbalizes understanding of instruction.
[2018-08-08 08:11] VITALS: BP 116/52
== END 2018-08-08 08:12 | disposition home or self-care (01) ==
LOC: ER 07:09
DX: M54.6 Pain in thoracic spine (principal); M25.512 Pain in left shoulder; R07.89 Other chest pain; E66.9 Obesity, unspecified; E11.40 Type 2 diabetes mellitus with diabetic neuropathy, unspecified; J45.909 Unspecified asthma, uncomplicated; F31.9 Bipolar disorder, unspecified; Z88.6 Allergy status to analgesic agent
CPT/HCPCS: 71045; 82962; 93005; 96372; 99283; J1885

== ENCOUNTER 2020-01-17 02:26 | Emergency (ER) | payer MEDICAID ==
[~2020-01-17] VITALS: Ht 167.6 cm; Wt 133.8 kg
[2020-01-17 02:26] VITALS: BP 142/78
--- NOTE | 2020-01-17 02:43 | NUR ---
DR HAWK AT BEDSIDE
[2020-01-17] MEDS ORDERED: HYDROCODONE/APAP 5/325MG TABLET ONE (02:52)
[2020-01-17] MEDS ORDERED: HYDROCODONE/APAP 5/325MG TABLET PO ONE (03:00)
== END 2020-01-17 03:02 | disposition home or self-care (01) ==
LOC: ER 02:30
DX: L03.314 Cellulitis of groin (principal); E11.40 Type 2 diabetes mellitus with diabetic neuropathy, unspecified; J45.909 Unspecified asthma, uncomplicated; F31.9 Bipolar disorder, unspecified; F17.200 Nicotine dependence, unspecified, uncomplicated; Z88.6 Allergy status to analgesic agent; Z60.2 Problems related to living alone

== ENCOUNTER 2020-02-15 02:04 | Emergency (ER) | payer MEDICAID ==
[~2020-02-15] VITALS: Ht 170.2 cm; Wt 131.5 kg
[2020-02-15 02:05] VITALS: BP 138/69
--- NOTE | 2020-02-15 02:51 | NUR ---
Patient discharged to home in stable condition. Written and verbal after care instructions given. Patient verbalizes understanding of instruction.pt. ambulatory with a steady gait
== END 2020-02-15 02:53 | disposition home or self-care (01) ==
LOC: ER 02:04
DX: L02.31 Cutaneous abscess of buttock (principal); E66.01 Morbid (severe) obesity due to excess calories; J45.909 Unspecified asthma, uncomplicated; E11.40 Type 2 diabetes mellitus with diabetic neuropathy, unspecified; F31.9 Bipolar disorder, unspecified; F17.200 Nicotine dependence, unspecified, uncomplicated; Z68.42 Body mass index [BMI] 45.0-49.9, adult; Z88.6 Allergy status to analgesic agent; Z60.2 Problems related to living alone

== ENCOUNTER 2020-02-29 07:02 | Emergency (ER) | payer MEDICAID ==
[~2020-02-29] VITALS: Ht 167.6 cm; Wt 131.5 kg
--- NOTE | 2020-02-29 07:21 | NUR ---
SEEN AND EXAMINED BY .
[2020-02-29] MEDS ORDERED: KETOROLAC TROMETHAMINE INJ 30 MG/ML VIAL ONE (07:27)
[2020-02-29 07:30] VITALS: BP 141/88
[2020-02-29] MEDS ORDERED: KETOROLAC TROMETHAMINE INJ 60 MG/2 ML VIAL IM ONE (07:30)
--- NOTE | 2020-02-29 07:31 | NUR ---
CALLED RADIOLOGY FOR XRAY NO ANSWER.
--- NOTE | 2020-02-29 08:01 | NUR ---
SPECIAL EFFECTS DESIGNER AT BEDSIDE FOR XRAY.
[2020-02-29] MEDS ORDERED: NAPROXEN 250 MG TABLET ONE (08:18)
--- NOTE | 2020-02-29 08:21 | NUR ---
Patient discharged to home in stable condition. Written and verbal after care instructions given. Patient verbalizes understanding of instruction.
[2020-02-29] MEDS ORDERED: NAPROXEN 250 MG TABLET PO ONE (08:30)
== END 2020-02-29 08:27 | disposition home or self-care (01) ==
LOC: ER 07:02
DX: S73.191A Other sprain of right hip, initial encounter (principal); E11.40 Type 2 diabetes mellitus with diabetic neuropathy, unspecified; J45.909 Unspecified asthma, uncomplicated; F31.9 Bipolar disorder, unspecified; F17.200 Nicotine dependence, unspecified, uncomplicated; Z60.2 Problems related to living alone; X58.XXXA Exposure to other specified factors, initial encounter; Y93.89 Activity, other specified; Y92.89 Other specified places as the place of occurrence of the external cause; Y99.8 Other external cause status
CPT/HCPCS: 72170; 96372; 99283; J1885